=== PATIENT | female | born 1950 | race Caucasian/White ===

== ENCOUNTER 2017-12-01 13:13 | Day surgery (SDC) | payer MEDICARE, MEDICAID ==
[~2017-12-01] VITALS: Ht 168.9 cm; Wt 79.1 kg
[2017-12-01] MEDS ORDERED: ATOR10TA87 PO (13:32)
[2017-12-01] MEDS ORDERED: RANI150C4 PO (13:32)
[2017-12-01] MEDS ORDERED: MV-M1TAB19 PO (13:32)
[2017-12-01] MEDS ORDERED: TIOT18CA3 INH (13:32)
[2017-12-01] MEDS ORDERED: FERR325T28 PO (13:32)
[2017-12-01] MEDS ORDERED: TRAM50TA2 PO (13:32)
[2017-12-01] MEDS ORDERED: BUPR300T53 PO (13:32)
[2017-12-01] MEDS ORDERED: ESCI20TA38 PO (13:32)
[2017-12-01] MEDS ORDERED: METF500T PO (13:32)
[2017-12-01] MEDS ORDERED: TRAZ150T78 PO (13:32)
[2017-12-01] MEDS ORDERED: LISI40TA4 PO (13:32)
[2017-12-01] MEDS ORDERED: BUDE10.22 INH (13:32)
[2017-12-01 13:35] VITALS: BP 117/55
[2017-12-01] MEDS ORDERED: fentaNYL/PF 50MCG/1 ML 2ML syringe ONE (14:20)
[2017-12-01] MEDS ORDERED: LIDOcaine Viscous 15ml cup ONE (14:21)
[2017-12-01] MEDS ORDERED: MIDAZolam 5mg/ml 2ml vial ONE (14:21)
[2017-12-01 14:43] VITALS: BP 115/70
[2017-12-01 14:53] VITALS: BP 130/47
[2017-12-01 15:03] VITALS: BP 138/68
[2017-12-01 15:09] VITALS: BP 126/56
== END 2017-12-01 15:18 | disposition home or self-care (01) ==
LOC: GI LAB 13:13
PROVIDERS: ATTEND Internal Medicine Gastroenterology
DX: K29.50 Unspecified chronic gastritis without bleeding (principal); K44.9 Diaphragmatic hernia without obstruction or gangrene; K29.80 Duodenitis without bleeding; D50.0 Iron deficiency anemia secondary to blood loss (chronic)
CPT/HCPCS: 43239; G0500; J2250; J3010; J7030; A4620

== ENCOUNTER 2018-02-02 12:14 | Day surgery (SDC) | payer MEDICARE, MEDICAID ==
[~2018-02-02] VITALS: Ht 170.2 cm; Wt 77.3 kg
[~2018-02-02 12:14] MED LIST: ATOR10TA87 PO; BUDE10.22 INH; BUPR300T53 PO; ESCI20TA38 PO; FERR325T28 PO; LISI40TA4 PO; METF500T PO; MV-M1TAB19 PO; RANI150C4 PO; TIOT18CA3 INH; TRAM50TA2 PO; TRAZ150T78 PO
[2018-02-02] MEDS ORDERED: fentaNYL/PF 50MCG/1 ML 2ML syringe ONE ×2 (12:44→13:56)
[2018-02-02] MEDS ORDERED: MIDAZolam 5mg/5ml vial ONE (12:44)
[2018-02-02 12:48] VITALS: BP 125/74
[2018-02-02 14:02] VITALS: BP 118/71
[2018-02-02 14:12] VITALS: BP 108/56
[2018-02-02 14:22] VITALS: BP 110/59
[2018-02-02 14:32] VITALS: BP 128/50
== END 2018-02-02 14:35 | disposition home or self-care (01) ==
LOC: GI LAB 12:14
PROVIDERS: ATTEND Internal Medicine Gastroenterology
DX: D12.8 Benign neoplasm of rectum (principal); D62 Acute posthemorrhagic anemia; K57.30 Diverticulosis of large intestine without perforation or abscess without bleeding
CPT/HCPCS: 45385; 99153; G0500; J2250; J3010; J7030; 88305; A4620

== ENCOUNTER 2019-01-08 13:28 | Emergency (ER) | payer MEDICARE, MEDICAID ==
[~2019-01-08 13:28] MED LIST changes: -TIOT18CA3 INH
[2019-01-09] MEDS ORDERED: LEVO750T21 PO (00:42)
[2019-01-09] MEDS ORDERED: BUDE10.2 INH (00:42)
[2019-01-09] MEDS ORDERED: PRED20TA PO (00:42)
== END 2019-01-08 15:03 | disposition left against medical advice (07) ==
LOC: ER 13:29
DX: R51 Headache (principal); Z53.21 Procedure and treatment not carried out due to patient leaving prior to being seen by health care provider

== ENCOUNTER 2019-01-26 12:03 | Inpatient (IN) | payer MEDICARE, MEDICAID ==
[~2019-01-26] VITALS: Ht 165.1 cm; Wt 65.0 kg
[~2019-01-26 12:03] MED LIST changes: +BUDE10.2 INH
[2019-01-26] MEDS ORDERED: normal saline 1000ML IV soln IVB ONE (12:20)
--- NOTE | 2019-01-26 12:26 | NUR ---
JEANIE (SON) AT BEDSIDE
[2019-01-26 13:02] LABS: BASOPHILS # (AUTO) 0.1 X10'3 (0-0.2); BASOPHILS % (AUTO) 0.6 % (0-1); EOSINOPHILS % (AUTO) 0.2 % (0-6); HEMATOCRIT 31.3 % (35.0-45.0); HEMOGLOBIN 10.1 g/dl (12.0-16.0); LYMPHOCYTES % (AUTO) 5.5 % (21-51); MEAN CORPUSCULAR HEMOGLOBIN 26.8 PG (27.0-31.0); MEAN CORPUSCULAR HGB CONC 32.3 g/dL (33.0-36.5); MONOCYTES % (AUTO) 5.7 % (2-12); PLATELET COUNT 430 X10'3 (140-440); RED BLOOD COUNT 3.77 X10'6 (4.20-5.60); RED CELL DISTRIBUTION WIDTH 19.3 % (11.5-14.5); WHITE BLOOD COUNT 18.2 X10'3 (4.5-11.0)
[2019-01-26 13:06] LABS: AMMONIA < 10 UMOL/L (11-32)
[2019-01-26 13:07] LABS: CLARITY,URINE CLEAR (Clear); COLOR,URINE STRAW (Yellow); GLUCOSE, URINE NEGATIVE (Neg); KETONES,URINE NEGATIVE (Neg); LEUKOCYTE ESTERASE ,URINE NEGATIVE (Neg); NITRITES, URINE NEGATIVE (Neg); OCCULT BLOOD,URINE TRACE-INTACT (Neg); PH,URINE 6.5 (4.8-8.0); PROTEIN,URINE NEGATIVE (Neg); UROBILINOGEN,URINE 0.2 E.U/dL (0.2-1.0)
[2019-01-26 13:09] LABS: ALANINE AMINOTRANSFERASE 32 U/L (12-78); ALBUMIN 3.7 G/DL (3.4-5.0); ALBUMIN/GLOBULIN RATIO 0.9 (1.1-1.5); ALKALINE PHOSPHATASE 71 IU/L (46-116); ANION GAP 10 (8-16); ASPARTATE AMINO TRANSFERASE 32 U/L (10-37); BILIRUBIN,TOTAL 0.4 MG/DL (0.1-1.0); BLOOD UREA NITROGEN 25 MG/DL (7-18); BUN/CREATININE RATIO 17.9 (6.6-38.0); CALCIUM 9.5 MG/DL (8.5-10.1); CHLORIDE 107 MMOL/L (99-107); GLUCOSE 133 MG/DL (70-104); POTASSIUM 5.7 MMOL/L (3.5-5.1); SODIUM 140 MMOL/L (135-145); TOTAL CARBON DIOXIDE 23.3 MMOL/L (24-32); TOTAL PROTEIN 7.8 G/DL (6.4-8.2); eGFR 37 ML/MIN
[2019-01-26 13:18] LABS: UA COLLECTION TYPE STRAIGHT CATH
[2019-01-26 13:18] LABS: ETHANOL < 0.010 GM/DL (0.0-0.010); MAGNESIUM 2.1 MG/DL (1.5-2.4)
[2019-01-26 13:19] LABS: URINE AMPHETAMINE SCREEN NEGATIVE (Neg); URINE BARBITUATE SCREEN NEGATIVE (Neg); URINE BENZODIAZEPINES SCREEN NEGATIVE (Neg); URINE CANNABINOID SCREEN NEGATIVE (Neg); URINE COCAINE SCREEN NEGATIVE (Neg); URINE METHADONE SCREEN NEGATIVE (Neg); URINE OPIATE SCREEN NEGATIVE (Neg); URINE PHENCYCLIDINE SCREEN NEGATIVE (Neg)
[2019-01-26 13:20] LABS: RBC,URINE 0-2 /HPF (0-2); SQUAMOUS EPITHELIAL CELL,UR FEW /LPF (FEW); WBC,URINE 0-4 /HPF (0-4)
[2019-01-26 13:21] LABS: BACTERIA,URINE NONE SEEN /HPF (Neg)
[2019-01-26] MEDS ORDERED: morphine 2 MG/ML inj. syringe IV PRN (14:05)
[2019-01-26] MEDS ORDERED: magnesium hydroxide 30ml (MOM) UD suspension PO PRN (14:05)
[2019-01-26] MEDS ORDERED: mag hydrox/Alum hydrox/simeth 30ml oral suspension PO PRN (14:05)
[2019-01-26] MEDS ORDERED: acetaminophen 325mg tablet PO PRN (14:05)
[2019-01-26] MEDS ORDERED: ondansetron/PF 4mg/2ml inj IV PRN (14:05)
[2019-01-26] MEDS ORDERED: HYDROcodone/acetaminophen 5mg/325mg tablet PO PRN (14:05)
[2019-01-26] MEDS ORDERED: etomidate 2mg/ml inj. IV ONE (14:10)
[2019-01-26] MEDS ORDERED: ondansetron/PF 4mg/2ml inj IV ONE (14:10)
[2019-01-26 14:11] LABS: TOTAL CELLS COUNTED 100
[2019-01-26 14:12] LABS: ANISOCYTOSIS 2+; LARGE PLATELETS FEW; PLATELET ESTIMATE NORMAL
[2019-01-26 14:19] LABS: HEMOGLOBIN A1C 6.7 % (4.5-6.2)
--- NOTE | 2019-01-26 14:46 | NUR ---
PATIENT BECAME EXTREMELY COMBATIVE AND RESTLESS DURING INSERTION OF XIAO CATH. 2 POINT RESTRAINTS APPLIED D/T PATIENT COMBATIVE ACTIVITY AND STAFF UNABLE TO CALM PATIENT DOWN. NEW IV ESTABLISHED IN RIGHT FOREARM. IV IN LEFT FOREARM DISLODGED D/T PATIENT STRUGGLING AGAINST STAFF.
--- NOTE | 2019-01-26 14:49 | NUR ---
DR. PARISI OBSERVED PATIENT ACTIVITY AFTER XIAO INSERTION. ORDERED PATIENT TO BE MOVED TO BIGGER ROOM TO SEDATE PATIENT AND PERFORM LUMBAR PUNCTURE.
--- NOTE | 2019-01-26 15:10 | NUR ---
PATIENT SETUP FOR MODERATE SEDATION. 10 MG ETOMIDATE GIVEN, IV DISLODGED D/T PATIENT RESTLESS COMBATIVE BEHAVIOR.
[2019-01-26] MEDS ORDERED: haloperidol lactate 5mg/ml inj ONE (15:20)
[2019-01-26] MEDS ORDERED: LORazepam 2 mg/ml vial ONE (15:20)
[2019-01-26] MEDS ORDERED: diphenhydrAMINE 50 mg/ml inj ONE (15:20)
--- NOTE | 2019-01-26 15:20 | NUR ---
IV ESTABLISHED RIGHT LOWER LEG, LINE DISLODGED D/T PATIENT THRASHING.
--- NOTE | 2019-01-26 15:23 | NUR ---
VERBAL ORDER RECEIVED 10 MG ETOMIDATE NOW. PATIENT ALSO RECEIVED B52 IVP PER VERBAL ORDER.
[2019-01-26] MEDS ORDERED: fentaNYL/PF 50MCG/1 ML 2ML syringe IV ONE (15:25)
[2019-01-26] MEDS ORDERED: MIDAZolam 5mg/ml 2ml vial IV ONE (15:25)
--- NOTE | 2019-01-26 15:25 | NUR ---
NEW IV ESTABLISHED BY IN PATIENT RIGHT LOWER LEG. APPEARS TO BE FLUSHING AND OPERATING WELL.
[2019-01-26] MEDS ORDERED: haloperidol lactate 5mg/ml inj IM ONE ×2 (15:30→17:15)
[2019-01-26] MEDS ORDERED: LORazepam 2 mg/ml vial IV ONE ×2 (15:30→17:15)
[2019-01-26] MEDS ORDERED: diphenhydrAMINE 50 mg/ml inj IV ONE ×2 (15:30→17:15)
--- NOTE | 2019-01-26 15:30 | NUR ---
100 MCG FENTANYL AND 4 MG VERSED GIVEN PER VERBAL ORDER FROM DR. PARISI.
--- NOTE | 2019-01-26 15:34 | NUR ---
PATIENT STILL NOT RESPONDING TO MEDICATION. 10 MG ETOMIDATE GIVEN PER VERBAL ORDER FROM .
[2019-01-26] MEDS ORDERED: propofol 1000mg/100ml bottle 100 ML IV ONE (15:37)
--- NOTE | 2019-01-26 15:40 | NUR ---
[address] PARISI. PATIENT NOT RESPONDING TO MEDICATION, ADDITIONAL 100 MG GIVEN BY .
--- NOTE | 2019-01-26 15:42 | NUR ---
PATIENT STILL RESTLESS AND AGITATED, NOT RESPONDING TO MEDICATION. 60 MG PROPOFOL GIVEN BY .
--- NOTE | 2019-01-26 15:45 | NUR ---
PATIENT STILL NOT RESPONDING TO MEDICATION. RESTLESS AND AGITATED, ADDITIONAL 40 MG PROPOFOL GIVEN BY .
[2019-01-26] MEDS ORDERED: dexamethasone sod phosphate 10mg/ml inj IV STA (16:00)
[2019-01-26] MEDS ORDERED: CefTRIAXone 2gm/D5W 50ml 50 ML IV ONE (16:00)
--- NOTE | 2019-01-26 16:00 | NUR ---
SEDATION NEVER ACHIEVED. LUMBAR PUNCTURE WAS ATTEMPTED UNSUCCESSFULLY, PROCEDURE ABANDONED.
--- NOTE | 2019-01-26 16:10 | NUR ---
IV IN RIGHT LOWER LEG APPEARS TO HAVE INFILATRATED. MD MADE AWARE, VERBAL ORDER TO PULL IV AND ESTABLISH NEW LINE. NEW IV LINES ESTABLISHED TO LEFT AND RIGHT FOREARMS.
--- NOTE | 2019-01-26 16:33 | NUR ---
HOSPITALIST IN TO ASSESS PATIENT. PATIENT CONTINUES TO BE RESTLESS AND AGITATED. STILL WITH NO APPRORIATE VERBAL OR MOTOR RESPONSE. PATIENT REMAINS IN 2 POINT RESTRAINTS.
[2019-01-26] MEDS ORDERED: ATRIN INH (17:03)
[2019-01-26] MEDS: dextrose 5%-1/2 normal saline 1,000 ML IV SCH (18:07)
[2019-01-26 19:30] VITALS: BP 118/59
[2019-01-26 22:00] VITALS: BP 121/57
[2019-01-26] MEDS: heparin, porcine 5000 units/ml vial SQ SCH (22:05)
--- NOTE | 2019-01-26 22:19 | NUR ---
PAGER ID: [phone] MESSAGE: PATIENT WAGNER JOHNSON 3052B: BLOOD SUGAR 203, WOULD YOU LIKE TO START DIABETIC PROTOCOL? ON D51/2NS. POTASSIUM 5.2. THANK YOU JUSTEN [id number].
--- NOTE | 2019-01-26 22:19 | NUR ---
PAGER ID: [phone] MESSAGE: PATIENT WAGNER BENAVIDES [id number]: COMPLAINING OF SEVERE BACK PAIN; NORCO 10/ ULTRAM NOT WORKING FOR HER. THANK YOU STEPHEN
[2019-01-26] MEDS ORDERED: dextrose 50%-water 50ml dispensing syringe IV PRN ×2 (22:40)
[2019-01-26] MEDS ORDERED: dextrose ORAL solution 15 GM/59 ML bottle PO PRN ×2 (22:40)
[2019-01-26] MEDS ORDERED: insulin Lispro (HumaLOG) vial - multi-dose SQ SCH (22:40)
[2019-01-26] MEDS ORDERED: glucagon, human recombinant 1mg kit SUBCUT PRN (22:40)
--- NOTE | 2019-01-26 23:00 | NUR ---
PT ARRIVED ON UNIT VIA GURNEY. VITALS STABLE. PATIENT CONFUSED; YELLING/COMBATIVE, KICKING. UNABLE TO DART AT THIS TIME.
[2019-01-26] MEDS: insulin glargine (Lantus) pen - multi-dose SQ SCH (23:29)
[2019-01-27 01:18] LABS: BASOPHILS # (AUTO) 0.1 X10'3 (0-0.2); BASOPHILS % (AUTO) 0.8 % (0-1); EOSINOPHILS % (AUTO) 0 % (0-6); HEMATOCRIT 29.6 % (35.0-45.0); HEMOGLOBIN 9.3 g/dl (12.0-16.0); LYMPHOCYTES # (AUTO) 0.9 X10'3 (1.1-4.8); LYMPHOCYTES % (AUTO) 6.8 % (21-51); MEAN CORPUSCULAR HEMOGLOBIN 26.6 PG (27.0-31.0); MEAN CORPUSCULAR HGB CONC 31.5 g/dL (33.0-36.5); MEAN CORPUSCULAR VOLUME 84.4 FL (78-98); MEAN PLATELET VOLUME 7.1 FL (7.4-10.4); MONOCYTES # (AUTO) 0.3 X10'3 (0-0.9); MONOCYTES % (AUTO) 2.4 % (2-12); NEUTROPHILS # (AUTO) 11.5 X10'3 (1.8-7.7); PLATELET COUNT 376 X10'3 (140-440); RED CELL DISTRIBUTION WIDTH 19.4 % (11.5-14.5); WHITE BLOOD COUNT 12.7 X10'3 (4.5-11.0)
[2019-01-27 01:38] LABS: ALBUMIN 3.3 G/DL (3.4-5.0); ANION GAP 9 (8-16); BLOOD UREA NITROGEN 24 MG/DL (7-18); BUN/CREATININE RATIO 18.5 (6.6-38.0); CHLORIDE 108 MMOL/L (99-107); GLUCOSE 221 MG/DL (70-104); POTASSIUM 4.9 MMOL/L (3.5-5.1); SODIUM 141 MMOL/L (135-145); TOTAL CARBON DIOXIDE 24.4 MMOL/L (24-32); eGFR 41 ML/MIN
[2019-01-27 03:44] LABS: ANISOCYTOSIS 2+; BURR CELLS FEW; ELLIPTOCYTES FEW; PLATELET ESTIMATE NORMAL; SCHISTOCYTES FEW
[2019-01-27] MEDS: dextrose 5%-1/2 normal saline 1,000 ML IV SCH ×3 (05:23→15:57)
[2019-01-27 06:00] VITALS: BP 165/66
--- NOTE | 2019-01-27 06:15 | NUR ---
Patient in room ORTHO 4009. I have received report from Dora Nunez RN and had the opportunity to ask questions and assume patient care.
--- NOTE | 2019-01-27 06:54 | NUR ---
PATIENT REPORT GIVEN TO MACI DO.
[2019-01-27] MEDS: heparin, porcine 5000 units/ml vial SQ SCH ×2 (08:41→21:26)
[2019-01-27 10:00] VITALS: BP 170/77
[2019-01-27] MEDS: morphine 2 MG/ML inj. syringe IV PRN ×2 (11:13→15:51)
--- NOTE | 2019-01-27 11:56 | NUR ---
PAGER ID: [phone] MESSAGE: Libby on ortho #[phone], Ms. Rodriguez, room 4009B, is quite agitated, crying, can we have something for agitation? Please advise, thank you
--- NOTE | 2019-01-27 12:01 | NUR ---
Markus trigger: Markus 11; skin intact Addendum: 01/27/19 at [address] Amended: Links added.
[2019-01-27] MEDS ORDERED: haloperidol lactate 5mg/ml inj IM ONE (12:10)
[2019-01-27] MEDS ORDERED: escitalopram 20mg tablet PO SCH (12:55)
[2019-01-27] MEDS ORDERED: LORazepam 2 mg/ml vial IV PRN (12:55)
[2019-01-27] MEDS ORDERED: ziprasidone IM 20mg inj **IM only IM ONE (13:00)
[2019-01-27] MEDS ORDERED: OLANZapine 5mg rapidly disint. tablet PO PRN (13:00)
[2019-01-27] MEDS ORDERED: ipratropium/albuterol 3ml nebule NEB PRN (13:10)
[2019-01-27 14:01] LABS: ABG BASE EXCESS -3.8 mmol/L (-2.0-3.0); ABG HCO3 20.7 mmol/L (22.0-26.0); ABG OXYGEN SATURATION 96.2 % (95-98); ABG PCO2 (T) 35.5 mmHg (32.0-45.0); ABG PH (T) 7.384 (7.350-7.450); ABG PO2 (T) 86.1 mmHg (83-108); ALLEN'S TEST Positive; FCOHb 0.3 % (0.5-1.5); FLOW 3 L/min; FMetHb 0.1 % (0.3-1.12); FO2Hb 95.8 % (94-100); TOTAL HEMOGLOBIN 9.8 G/dl (12.0-16.0)
--- NOTE | 2019-01-27 14:08 | NUR ---
PAGER ID: [phone] MESSAGE: Libby on [facility], # [phone], Ms. Rodriguez in 0841B, ABGs are done, thank you
[2019-01-27] MEDS: ipratropium/albuterol 3ml nebule NEB SCH ×3 (14:21→23:58)
[2019-01-27] MEDS: QUEtiapine 25mg tablet PO SCH ×2 (15:36→16:00)
--- NOTE | 2019-01-27 16:04 | NUR ---
Pt spit medication out forcefully
[2019-01-27 18:00] VITALS: BP 171/88
--- NOTE | 2019-01-27 18:07 | NUR ---
Problems reprioritized. Patient report given, questions answered & plan of care reviewed with Dora Nunez RN.
--- NOTE | 2019-01-27 18:16 | NUR ---
PATIENT REPORT RECEIVED FROM MACI DO.
[2019-01-27] MEDS: haloperidol lactate 5mg/ml inj IM PRN ×2 (18:41→22:25)
[2019-01-27] MEDS: BUDESONIDE 0.25 MG/2 ML AMPUL.NEB IH SCH (19:19)
[2019-01-27] MEDS ORDERED: traZODone 150mg tablet PO SCH (21:00)
[2019-01-27] MEDS: buPROPion SR 150mg tablet PO SCH (21:51)
[2019-01-27 22:00] VITALS: BP 138/68
--- NOTE | 2019-01-27 22:00 | NUR ---
PT PULLED OUT XIAO. VERY RESISTIVE TO CARE. WILL NOT KEEP CONTINUOUS PULSE OX ON. NEW XIAO PUT IN. WILL CONTINUE TO CLOSELY MONITOR. SITTER AT BEDSIDE.
--- NOTE | 2019-01-28 | NUR ---
PT REFUSED SEROQUEL AT MIDNIGHT; SPAT IT OUT AFTER SEVERAL ATTEMPTS
[2019-01-28] MEDS: morphine 2 MG/ML inj. syringe IV PRN ×4 (00:58→20:43)
[2019-01-28] MEDS: dextrose 5%-1/2 normal saline 1,000 ML IV SCH ×3 (01:15→23:49)
[2019-01-28] MEDS: ipratropium/albuterol 3ml nebule NEB SCH ×6 (03:08→23:26)
[2019-01-28 06:00] VITALS: BP 129/64
--- NOTE | 2019-01-28 06:20 | NUR ---
Patient in room ORTHO 4009. I have received report from Dora Nunez RN and had the opportunity to ask questions and assume patient care.
--- NOTE | 2019-01-28 06:38 | NUR ---
PATIENT REPORT GIVEN TO MACI DO.
[2019-01-28 06:40] LABS: BASOPHILS # (AUTO) 0.1 X10'3 (0-0.2); BASOPHILS % (AUTO) 0.6 % (0-1); EOSINOPHILS # (AUTO) 0.1 X10'3 (0-0.9); EOSINOPHILS % (AUTO) 0.9 % (0-6); HEMATOCRIT 28.7 % (35.0-45.0); HEMOGLOBIN 9.1 g/dl (12.0-16.0); LYMPHOCYTES # (AUTO) 2.5 X10'3 (1.1-4.8); LYMPHOCYTES % (AUTO) 20.5 % (21-51); MEAN CORPUSCULAR HEMOGLOBIN 26.6 PG (27.0-31.0); MEAN CORPUSCULAR HGB CONC 31.7 g/dL (33.0-36.5); MEAN CORPUSCULAR VOLUME 83.9 FL (78-98); MONOCYTES % (AUTO) 8.4 % (2-12); NEUTROPHILS # (AUTO) 8.4 X10'3 (1.8-7.7); NEUTROPHILS % (AUTO) 69.6 % (42-75); PLATELET COUNT 384 X10'3 (140-440); RED BLOOD COUNT 3.42 X10'6 (4.20-5.60); RED CELL DISTRIBUTION WIDTH 19.4 % (11.5-14.5); WHITE BLOOD COUNT 12.1 X10'3 (4.5-11.0)
[2019-01-28 06:56] LABS: ALBUMIN 3.3 G/DL (3.4-5.0); ANION GAP 11 (8-16); BLOOD UREA NITROGEN 19 MG/DL (7-18); CALCIUM 8.9 MG/DL (8.5-10.1); CHLORIDE 107 MMOL/L (99-107); CREATININE 1.12 MG/DL (0.40-0.90); GLUCOSE 130 MG/DL (70-104); POTASSIUM 3.9 MMOL/L (3.5-5.1); SODIUM 139 MMOL/L (135-145); TOTAL CARBON DIOXIDE 21.2 MMOL/L (24-32); eGFR 48 ML/MIN
[2019-01-28] MEDS: BUDESONIDE 0.25 MG/2 ML AMPUL.NEB IH SCH ×2 (07:21→20:22)
[2019-01-28] MEDS ORDERED: non-formulary drug (Bupropion Hcl (Wellbutrin Xl) 1 TABLET) PO SCH (08:00)
[2019-01-28] MEDS: citalopram 20mg tablet PO SCH (08:41)
[2019-01-28] MEDS: buPROPion SR 150mg tablet PO SCH ×2 (08:42→20:42)
[2019-01-28] MEDS: ferrous sulfate 325mg tablet PO SCH (08:42)
[2019-01-28] MEDS: QUEtiapine 25mg tablet PO SCH ×3 (08:42→20:42)
[2019-01-28] MEDS: heparin, porcine 5000 units/ml vial SQ SCH ×2 (08:42→20:42)
[2019-01-28] MEDS: atorvastatin 10mg tablet PO SCH (08:42)
[2019-01-28] MEDS: HYDROcodone/acetaminophen 10/325mg tab PO PRN ×3 (08:54→23:49)
[2019-01-28 10:00] VITALS: BP 156/70
[2019-01-28] MEDS ORDERED: QUEtiapine 25mg tablet PO ONE (12:20)
[2019-01-28] MEDS ORDERED: QUEtiapine 25mg tablet PO SCH (12:28)
--- NOTE | 2019-01-28 13:08 | NUR ---
Pt much more A&O, able to follow instruction, redirectable, able to answer questions somewhat Addendum: 01/28/19 at 1309 by Libby Salas RN Amended: Links added.
[2019-01-28 18:00] VITALS: BP 166/78
--- NOTE | 2019-01-28 18:23 | NUR ---
Problems reprioritized. Patient report given, questions answered & plan of care reviewed with Annalise DO.
--- NOTE | 2019-01-28 18:33 | NUR ---
Patient in room ORTHO 4009. I have received report from MACI DO and had the opportunity to ask questions and assume patient care.
[2019-01-28] MEDS: insulin glargine (Lantus) pen - multi-dose SQ SCH (21:00)
[2019-01-28 22:00] VITALS: BP 141/62
[2019-01-29] MEDS: dextrose 5%-1/2 normal saline 1,000 ML IV SCH ×2 (02:04→09:10)
[2019-01-29] MEDS: ipratropium/albuterol 3ml nebule NEB SCH ×4 (03:24→15:00)
[2019-01-29] MEDS: QUEtiapine 25mg tablet PO SCH ×3 (03:32→20:31)
[2019-01-29] MEDS: morphine 2 MG/ML inj. syringe IV PRN (03:33)
[2019-01-29 05:33] VITALS: BP 149/74
--- NOTE | 2019-01-29 06:10 | NUR ---
Patient in room ORTHO 4009. I have received report from HI Woody and had the opportunity to ask questions and assume patient care.
[2019-01-29 06:14] LABS: BASOPHILS % (AUTO) 0.6 % (0-1); EOSINOPHILS # (AUTO) 0.3 X10'3 (0-0.9); EOSINOPHILS % (AUTO) 3.2 % (0-6); LYMPHOCYTES # (AUTO) 1.6 X10'3 (1.1-4.8); LYMPHOCYTES % (AUTO) 18.4 % (21-51); MEAN CORPUSCULAR HEMOGLOBIN 27.4 PG (27.0-31.0); MEAN CORPUSCULAR HGB CONC 33.1 g/dL (33.0-36.5); MEAN CORPUSCULAR VOLUME 82.7 FL (78-98); MONOCYTES # (AUTO) 0.8 X10'3 (0-0.9); MONOCYTES % (AUTO) 9.4 % (2-12); NEUTROPHILS # (AUTO) 5.9 X10'3 (1.8-7.7); NEUTROPHILS % (AUTO) 68.4 % (42-75); PLATELET COUNT 366 X10'3 (140-440); RED BLOOD COUNT 3.27 X10'6 (4.20-5.60); RED CELL DISTRIBUTION WIDTH 19.7 % (11.5-14.5); WHITE BLOOD COUNT 8.6 X10'3 (4.5-11.0)
--- NOTE | 2019-01-29 06:21 | NUR ---
Problems reprioritized. Patient report given, questions answered & plan of care reviewed with MACI DO.
[2019-01-29 06:32] LABS: ALBUMIN 3.1 G/DL (3.4-5.0); ANION GAP 13 (8-16); BLOOD UREA NITROGEN 13 MG/DL (7-18); BUN/CREATININE RATIO 13.1 (6.6-38.0); CALCIUM 9.1 MG/DL (8.5-10.1); CHLORIDE 105 MMOL/L (99-107); CREATININE 0.99 MG/DL (0.40-0.90); GLUCOSE 152 MG/DL (70-104); POTASSIUM 3.6 MMOL/L (3.5-5.1); SODIUM 138 MMOL/L (135-145); TOTAL CARBON DIOXIDE 19.7 MMOL/L (24-32); eGFR 56 ML/MIN
[2019-01-29] MEDS: BUDESONIDE 0.25 MG/2 ML AMPUL.NEB IH SCH (07:23)
[2019-01-29] MEDS: atorvastatin 10mg tablet PO SCH (09:08)
[2019-01-29] MEDS: citalopram 20mg tablet PO SCH (09:08)
[2019-01-29] MEDS: buPROPion SR 150mg tablet PO SCH ×2 (09:08→20:31)
[2019-01-29] MEDS: ferrous sulfate 325mg tablet PO SCH (09:08)
[2019-01-29] MEDS: heparin, porcine 5000 units/ml vial SQ SCH ×2 (09:09→20:31)
[2019-01-29] MEDS: HYDROcodone/acetaminophen 10/325mg tab PO PRN ×2 (09:10→20:33)
[2019-01-29 10:00] VITALS: BP 164/77
--- NOTE | 2019-01-29 15:06 | NUR ---
PAGER ID: [phone] MESSAGE: Libby on ortho, # [phone], Ms. Rodriguez in 1505B, refusing RT treatments, fyi, can we DC them?, thank you
[2019-01-29 18:00] VITALS: BP 148/69
--- NOTE | 2019-01-29 18:07 | NUR ---
Problems reprioritized. Patient report given, questions answered & plan of care reviewed with Dora Nunez RN.
--- NOTE | 2019-01-29 18:09 | NUR ---
PATIENT REPORT RECEIVED FROM MACI DO.
[2019-01-29] MEDS: insulin glargine (Lantus) pen - multi-dose SQ SCH (21:00)
[2019-01-29 22:00] VITALS: BP 143/62
[2019-01-30 06:00] VITALS: BP_SYST 143; BP_SYST 156; BP_DIAS 58; BP_DIAS 60
--- NOTE | 2019-01-30 06:33 | NUR ---
PATIENT REPORT GIVEN TO RISHI DO.
[2019-01-30 06:54] LABS: BASOPHILS # (AUTO) 0.1 X10'3 (0-0.2); BASOPHILS % (AUTO) 0.6 % (0-1); EOSINOPHILS # (AUTO) 0.3 X10'3 (0-0.9); EOSINOPHILS % (AUTO) 3.6 % (0-6); HEMATOCRIT 28.2 % (35.0-45.0); HEMOGLOBIN 9.2 g/dl (12.0-16.0); LYMPHOCYTES # (AUTO) 1.5 X10'3 (1.1-4.8); LYMPHOCYTES % (AUTO) 16.3 % (21-51); MEAN CORPUSCULAR HEMOGLOBIN 27.2 PG (27.0-31.0); MEAN CORPUSCULAR HGB CONC 32.7 g/dL (33.0-36.5); MEAN CORPUSCULAR VOLUME 83.1 FL (78-98); MEAN PLATELET VOLUME 6.9 FL (7.4-10.4); MONOCYTES # (AUTO) 0.8 X10'3 (0-0.9); MONOCYTES % (AUTO) 8.8 % (2-12); NEUTROPHILS # (AUTO) 6.5 X10'3 (1.8-7.7); NEUTROPHILS % (AUTO) 70.7 % (42-75); PLATELET COUNT 393 X10'3 (140-440); RED CELL DISTRIBUTION WIDTH 19.3 % (11.5-14.5); WHITE BLOOD COUNT 9.1 X10'3 (4.5-11.0)
[2019-01-30 07:00] LABS: ANION GAP 9 (8-16); BLOOD UREA NITROGEN 9 MG/DL (7-18); BUN/CREATININE RATIO 9.1 (6.6-38.0); CALCIUM 9.4 MG/DL (8.5-10.1); CHLORIDE 106 MMOL/L (99-107); CREATININE 0.99 MG/DL (0.40-0.90); GLUCOSE 120 MG/DL (70-104); POTASSIUM 3.7 MMOL/L (3.5-5.1); SODIUM 139 MMOL/L (135-145); TOTAL CARBON DIOXIDE 24.3 MMOL/L (24-32); eGFR 56 ML/MIN
[2019-01-30] MEDS: QUEtiapine 25mg tablet PO SCH ×2 (08:00→13:00)
[2019-01-30] MEDS: buPROPion SR 150mg tablet PO SCH (08:00)
[2019-01-30] MEDS: ferrous sulfate 325mg tablet PO SCH (08:10)
[2019-01-30] MEDS: citalopram 20mg tablet PO SCH (08:10)
[2019-01-30] MEDS: atorvastatin 10mg tablet PO SCH (08:10)
[2019-01-30] MEDS: heparin, porcine 5000 units/ml vial SQ SCH (08:12)
[2019-01-30 08:16] LABS: PLATELET ESTIMATE NORMAL
[2019-01-30 08:17] LABS: ANISOCYTOSIS 2+; HYPOCHROMASIA 1+; POLYCHROMASIA 2+
[2019-01-30] MEDS: HYDROcodone/acetaminophen 10/325mg tab PO PRN ×2 (08:22→13:38)
[2019-01-30] MEDS ORDERED: METF500T PO (14:57)
--- NOTE | 2019-01-30 16:56 | NUR ---
PT dc home 1541 01/30/2019. pt educated on risk/benefits of using Rx medications that are not her own. pt verbalized understanding. pt son verbalized understanding. All medications administered as ordered. No s/s ase noted r/t polypharmacy. pt escorted RISSA in WC by [facility] staff member & pat son. All DC documents signed by pt. All documents per protocol given to pt. pt stopped by security to collect belongings from safe. pt thanked [facility] for her care.
== END 2019-01-30 15:45 | disposition home or self-care (01) | DRG 91 ==
LOC: ER 12:03 → ED HOLD 14:04 → ORTHO 4S 21:19 → CMPBEDREQ 01-27 01:45
PROVIDERS: ADMIT Internal Medicine; ATTEND Internal Medicine
PROC: 00JU3ZZ Inspection of Spinal Canal, Percutaneous Approach (ICD-10-PCS; principal; 2019-01-26)
DX: G92 Toxic encephalopathy (principal); R65.11 Systemic inflammatory response syndrome (SIRS) of non-infectious origin with acute organ dysfunction; N17.9 Acute kidney failure, unspecified; E87.5 Hyperkalemia; D64.9 Anemia, unspecified; E11.649 Type 2 diabetes mellitus with hypoglycemia without coma; E03.9 Hypothyroidism, unspecified; E78.00 Pure hypercholesterolemia, unspecified; E78.5 Hyperlipidemia, unspecified; E86.0 Dehydration; I10 Essential (primary) hypertension; J44.9 Chronic obstructive pulmonary disease, unspecified; F32.9 Major depressive disorder, single episode, unspecified; G89.29 Other chronic pain; M54.5 Low back pain; F17.210 Nicotine dependence, cigarettes, uncomplicated; Z78.1 Physical restraint status; Z79.899 Other long term (current) drug therapy; Z79.84 Long term (current) use of oral hypoglycemic drugs
CPT/HCPCS: 36415; 36600; 70450; 70551; 71045; 80048; 80053; 80305; 80320; 80329; 81001; 82140; 82803; 82948; 83036; 83605; 83735; 84132; 84145; 84439; 84443; 84484; 85018; 85025; 87040; 87070; 93005; 94640; 94760; 97116; 97161; 97530; G0378; J0696; J1100; J1200; J1630; J1644; J1815; J2060; J2250; J2270; J2405; J2704; J3010; J3486; J3490